=== PATIENT | female | born 1960 | race Caucasian/White ===

== ENCOUNTER 2016-09-18 14:55 | Emergency (ER) | payer OTHER ==
[~2016-09-18] VITALS: Ht 170.2 cm; Wt 93.0 kg
[~2016-09-18 14:55] MED LIST: CAPT50TA
[2016-09-18 15:09] VITALS: BP 164/86
[2016-09-18] MEDS ORDERED: ONDANSETRON 4 MG/2 ML VIAL IVP ONE (15:45)
[2016-09-18] MEDS ORDERED: NACL 0.9% 1,000 ML IV ONE (15:45)
--- NOTE | 2016-09-18 16:10 | NUR ---
PT TAKEN TO BED 4 VIA W/C
--- NOTE | 2016-09-18 16:12 | NUR ---
PT REFUSES SUPPLEMENTAL O2 ORDERED BY ER MD DR. GEIGER; STATES " I'M BREATHING FINE"; RR EVEN/UNLABORED; BL LUNG SOUNDS CLEAR; WILL CONTINUE TO MONITOR.
--- NOTE | 2016-09-18 16:15 | NUR ---
56F BIBA FROM HOME C/O GENERALIZED WEAKNESS X TODAY; PT STATES WENT FOR A WALK, CAME HOME, TOOK A NAP, AND WOKE UP FEELING WEEK; MILD WEAKNESS NOTED TO LEFT UPPER EXTREMITY AT THIS TIME; PT STATES HAS CHRONIC PAIN TO LEFT SHOULDER S/P LEFT SHOULDER SURGERY IN MARCH 2016 AND IS STARTING TO GET PHYSICAL THERAPY TO LEFT SHOULDER; PT AA&OX4 AT THIS TIME, PERRLA, BL LUNG SOUNDS CLEAR, RR EVEN/UNLABORED, SKIN IS WARM/DRY/INTACT; PT C/O NAUSEA, BUT DENIES DIARRHEA AT THIS TIME; ABDOMEN SOFT, NON-TENDER, ACTIVE BOWEL SOUNDS X4 QUADRANTS; PT STATES NO PAIN AT THIS TIME, BUT STATES CHRONIC PAIN 5/10 TO LEFT SHOULDER W/ MOVEMENT; PT PLACED ON MONITOR, RESTING IN BED W/ HOB ELEVATED AND IN LOWEST POSITION; POSITIONED FOR COMFORT; ER MD MADE AWARE OF STATUS. WILL CONTINUE TO MONITOR.
[2016-09-18 16:39] LABS: BASOPHILS # (AUTO) 0.2 K/uL (0.00-0.22); BASOPHILS % (AUTO) 3.9 % (0.0-2.0); EOSINOPHILS # (AUTO) 0.1 K/uL (0-0.4); EOSINOPHILS % (AUTO) 1.3 % (0.0-4.0); HEMATOCRIT 39.2 % (36-48); HEMOGLOBIN 13.2 g/dL (12.0-16.0); LYMPHOCYTES # (AUTO) 1.4 K/uL (2.5-16.5); LYMPHOCYTES % (AUTO) 21.8 % (20.5-51.1); MEAN CORPUSCULAR HEMOGLOBIN 30 pg (27-31); MEAN CORPUSCULAR HGB CONC 34 g/dL (33-37); MEAN CORPUSCULAR VOLUME 88 fL (80-94); MONOCYTES # (AUTO) 0.4 K/uL (0.8-1.0); MONOCYTES % (AUTO) 6.1 % (1.7-9.3); NEUTROPHILS # (AUTO) 4.3 K/uL (1.8-7.7); NEUTROPHILS % (AUTO) 66.9 % (42.2-75.2); PLATELET COUNT (AUTO) 239 K/uL (140-450); RED BLOOD CELL COUNT(AUTO) 4.44 MIL/uL (4.20-5.40); RED CELL DISTRIBUTION WIDTH 12.1 % (11.6-13.7); WHITE BLOOD COUNT (AUTO) 6.4 K/uL (4.8-10.8)
[2016-09-18 16:48] LABS: ANION GAP 14.1 (8-16); CALCIUM 9.4 mg/dL (8.5-10.1); CARBON DIOXIDE 26.4 mmol/L (21-32); CREATININE 0.7 mg/dL (0.6-1.3); POTASSIUM 3.5 mmol/L (3.5-5.1)
[2016-09-18 16:51] LABS: PARTIAL THROMBOPLASTIN TIME 27.1 secs (22-35.6); PROTHROMBIN TIME 9.9 secs (10.8-13.4)
[2016-09-18 16:55] LABS: ALBUMIN 3.8 g/dL (3.4-5.0); TOTAL BILIRUBIN 0.3 mg/dL (0.0-1.0); TOTAL PROTEIN, SERUM 7.8 g/dL (6.4-8.2)
--- NOTE | 2016-09-18 17:37 | NUR ---
PT AMBULATED TO THE RESTROOM; STEADY GAIT.
--- NOTE | 2016-09-18 18:10 | NUR ---
PT APPEARS TO BE RESTING COMFORTABLY IN BED; STATES NO PAIN OR DISTRESS AT THIS TIME; FAMILY AT BEDSIDE; WILL CONTINUE TO MONITOR.
--- NOTE | 2016-09-18 19:00 | NUR ---
IV removed, catheter intact and site benign. Applied folded 4x4 gauze and tape to stop bleeding. PT TOLERATED PROCEDUCE WELL.
[2016-09-18 19:09] VITALS: BP 128/79
--- NOTE | 2016-09-18 19:09 | NUR ---
Patient discharged with v/s stable. Written and verbal after care instructions given and explained. Patient alert, oriented and verbalized understanding of instructions. Ambulatory with steady gait. All questions addressed prior to discharge. ID band removed. Patient advised to follow up with PMD. Rx of BACTRIM DS 800MG-160MG TAB given. Patient educated on indication of medication including possible reaction and side effects. Opportunity to ask questions provided and answered.
== END 2016-09-18 19:09 | disposition home or self-care (01) ==
LOC: MED 14:55
DX: R53.1 Weakness (principal); R06.00 Dyspnea, unspecified; M25.512 Pain in left shoulder; J45.909 Unspecified asthma, uncomplicated; I10 Essential (primary) hypertension; Z88.3 Allergy status to other anti-infective agents; Z88.1 Allergy status to other antibiotic agents
CPT/HCPCS: 36415; 70450; 71010; 80053; 81002; 81025; 83880; 84484; 85025; 85610; 85730; 93005; 96361; 96374; 99285; J2405; J7030; 96372; 96375